=== PATIENT | female | born 1960 | race Caucasian/White ===

== ENCOUNTER → 2020-11-22 | Outpatient (CLI) | payer OTHER ==
[~2020-11-22] MED LIST: AMBIEN10 MG PO; AUGMENTIN 875-1 EACH PO; AZITHROMYCIN250 MG PO; BENTYL 20MG TAB20 MG PO; BLACK COHOSH40 M1 PO; CHANTIX1 MG PO; CLARITIN10 MG PO; CLEOCIN HCL300 MG PO; COUMADIN10 MG PO; CYANOCOBAL1000 MCG/1 INJ; DEXILANT60 MG PO; ECOTRIN81 MG PO; ELAVIL 25 MG TA25 MG PO; K-DUR TAB 10 M10 MEQ PO; LASIX40 MG PO; NEURONTIN 300300 MG PO; NORCO 10-325 T1 EACH PO; PROZAC 20 MG CA20 MG PO; REQUIP1 MG PO; SYMBICORT 160-1 INHA INH; VENTOLIN HFA 66.7 GM INH; WELLBUTRIN SR150 M1 PO; ZOCOR20 MG PO; ZOFRAN ODT 4 MG4 MG PO
== END ==
LOC: CT 14:07
DX: N28.89 Other specified disorders of kidney and ureter (principal); K82.8 Other specified diseases of gallbladder
CPT/HCPCS: 36415; 82565; 84520; Q9967

== ENCOUNTER → 2021-02-16 | Outpatient (CLI) | payer OTHER | LOC: RAD 08:15 | DX: M25.561 Pain in right knee (principal); M17.11 Unilateral primary osteoarthritis, right knee | CPT/HCPCS: 73562 ==

== ENCOUNTER → 2021-05-26 | Outpatient (CLI) | payer OTHER ==
[~2021-05-26] MED LIST changes: +BACTRIM DS TAB1 EACH PO
== END ==
LOC: HEART 5 05-23 14:30
DX: R06.02 Shortness of breath (principal); I08.2 Rheumatic disorders of both aortic and tricuspid valves; Z95.2 Presence of prosthetic heart valve
CPT/HCPCS: 93306

== ENCOUNTER → 2021-06-01 | Outpatient (CLI) | payer OTHER | LOC: CT 09:29 | DX: N28.89 Other specified disorders of kidney and ureter (principal) | CPT/HCPCS: 36415; 74170; 82565; Q9965 ==

== ENCOUNTER → 2021-06-17 | Outpatient (CLI) | payer OTHER | LOC: EMI 09:58 | DX: G89.29 Other chronic pain (principal); M79.671 Pain in right foot; M85.671 Other cyst of bone, right ankle and foot | CPT/HCPCS: 73718 ==

== ENCOUNTER 2021-07-07 11:03 | Emergency (ER) | payer OTHER ==
[~2021-07-07 11:03] MED LIST changes: -BACTRIM DS TAB1 EACH PO
[2021-07-07] MEDS ORDERED: BACTRIM DS TAB1 EACH PO (12:27)
== END 2021-07-07 12:32 | disposition home or self-care (01) ==
LOC: ER1 11:03
DX: L02.212 Cutaneous abscess of back [any part, except buttock and flank] (principal)
CPT/HCPCS: 99282

== ENCOUNTER → 2021-07-11 | Outpatient (CLI) | payer OTHER ==
[~2021-07-11] MED LIST changes: +BACTRIM DS TAB1 EACH PO
== END ==
LOC: MAMO 07-08 09:00
DX: Z12.31 Encounter for screening mammogram for malignant neoplasm of breast (principal)
CPT/HCPCS: 77063; 77067; 77080

== ENCOUNTER → 2021-07-11 | Outpatient (CLI) | payer OTHER | LOC: EXRD 09:17 | DX: Z78.0 Asymptomatic menopausal state (principal); M85.88 Other specified disorders of bone density and structure, other site | CPT/HCPCS: 77080 ==

== ENCOUNTER → 2021-11-16 | Outpatient (CLI) | payer OTHER | LOC: HEART 5 07:30 | DX: R55 Syncope and collapse (principal); Z95.2 Presence of prosthetic heart valve ==

== ENCOUNTER → 2021-11-21 | Outpatient (CLI) | payer OTHER | LOC: ECHO 08:55 | DX: R55 Syncope and collapse (principal); I08.3 Combined rheumatic disorders of mitral, aortic and tricuspid valves; Z95.2 Presence of prosthetic heart valve | CPT/HCPCS: ECHO; 93306 ==

== ENCOUNTER → 2021-12-06 | Outpatient (CLI) | payer OTHER | LOC: CT 11-28 09:30 | DX: N28.9 Disorder of kidney and ureter, unspecified (principal); R91.8 Other nonspecific abnormal finding of lung field | CPT/HCPCS: 36415; 82565; 84520; Q9967 ==

== ENCOUNTER → 2022-01-27 | Outpatient (CLI) | payer OTHER | LOC: KOH-I 10:52 | DX: F17.210 Nicotine dependence, cigarettes, uncomplicated (principal); R91.8 Other nonspecific abnormal finding of lung field | CPT/HCPCS: 71271 ==

== ENCOUNTER → 2022-01-30 | Outpatient (CLI) | payer OTHER | LOC: HEART 5 08:59 | DX: J44.9 Chronic obstructive pulmonary disease, unspecified (principal); R94.2 Abnormal results of pulmonary function studies | CPT/HCPCS: 94060; 94729 ==

== ENCOUNTER → 2022-03-22 | Outpatient (CLI) | payer OTHER | LOC: HEART 5 09:44 | DX: J44.9 Chronic obstructive pulmonary disease, unspecified (principal) | CPT/HCPCS: 94060; 94729 ==

== ENCOUNTER 2022-05-30 07:44 | Observation (INO) | payer OTHER ==
[~2022-05-30] VITALS: Ht 167.6 cm; Wt 113.4 kg
[~2022-05-30 07:44] MED LIST changes: -COUMADIN10 MG PO; -K-DUR TAB 10 M10 MEQ PO; +POTASSIUM CHLO10 ME1 PO; -REQUIP1 MG PO; +ROPINIROLE HCL3 MG PO; +WARFARIN SODIUM10 MG PO
[2022-05-30 08:29] LABS: HEMOGLOBIN 12.2 gm/dl (12.3-15.3); RED BLOOD COUNT 3.62 M/UL (4.00-5.10); WHITE BLOOD COUNT 6.9 K/UL (4.5-11.0)
[2022-05-30 08:50] LABS: BUN/CREATININE RATIO 13 (0-10)
[2022-05-30] MEDS ORDERED: PREGABALIN150 MG PO (12:54)
[2022-05-30] MEDS ORDERED: LIDOCAINE 5% TOP (13:02)
[2022-05-30] MEDS ORDERED: SPIRIVA RESPIMAT4 GM INH (13:15)
[2022-05-30] MEDS ORDERED: ALBUTEROL2.5 MG/3 M INH (13:24)
[2022-05-31 02:32] LABS: HEMOGLOBIN 11.8 gm/dl (12.3-15.3); RED BLOOD COUNT 3.56 M/UL (4.00-5.10); WHITE BLOOD COUNT 6.2 K/UL (4.5-11.0)
[2022-05-31 03:17] LABS: BUN/CREATININE RATIO 15 (0-10)
[2022-05-31] MEDS ORDERED: ATORVASTATIN CA40 MG PO (15:51)
[2022-05-31] MEDS ORDERED: RANEXA500 MG PO (15:52)
[2022-05-31] MEDS ORDERED: NITROSTAT0.4 MG SL (16:06)
[2022-05-31] MEDS ORDERED: MACRODANTIN100 MG PO (16:06)
== END 2022-05-31 17:32 | disposition home or self-care (01) ==
LOC: ER1 07:44 → CDU 10:32 → M/S 11:24
PROVIDERS: Nurse Practitioner; Physician Assistant; ADMIT Internal Medicine
DX: R07.89 Other chest pain (principal); Z20.822 Contact with and (suspected) exposure to COVID-19; E78.5 Hyperlipidemia, unspecified; J44.9 Chronic obstructive pulmonary disease, unspecified; D53.9 Nutritional anemia, unspecified; R09.02 Hypoxemia; K21.9 Gastro-esophageal reflux disease without esophagitis; I10 Essential (primary) hypertension; F41.9 Anxiety disorder, unspecified; E11.40 Type 2 diabetes mellitus with diabetic neuropathy, unspecified; G89.4 Chronic pain syndrome; I89.0 Lymphedema, not elsewhere classified; G47.00 Insomnia, unspecified; M19.90 Unspecified osteoarthritis, unspecified site; F17.210 Nicotine dependence, cigarettes, uncomplicated; I25.2 Old myocardial infarction; Z79.01 Long term (current) use of anticoagulants; Z79.899 Other long term (current) drug therapy; Z88.6 Allergy status to analgesic agent; Z95.2 Presence of prosthetic heart valve
CPT/HCPCS: ECHO; 0240U; 36415; 71045; 78452; 80048; 80053; 80061; 81001; 82550; 82553; 83036; 83880; 84484; 85025; 85379; 85610; 85730; 93005; 93017; 93306; 94640; 94664; 94760; 96374; 96376; 99285; A9502; G0378; J0696; J2785